=== PATIENT | female | born 1970 | race Caucasian/White ===

== ENCOUNTER 2021-09-26 13:55 | Outpatient (CLI) | payer OTHER | END 2021-09-26 13:56 | disposition home or self-care (01) | LOC: CSHLAB 13:55 → EDBD 13:55 → CSHLAB 13:56 | PROVIDERS: ATTEND Obstetrics & Gynecology | DX: Z01.812 Encounter for preprocedural laboratory examination (principal); Z20.822 Contact with and (suspected) exposure to COVID-19; D25.0 Submucous leiomyoma of uterus | CPT/HCPCS: 84703; 85027; 86850; 86900; 86901; U0003; U0005 ==

== ENCOUNTER 2021-10-01 10:48 | Day surgery (SDC) | payer OTHER ==
[2021-09-26 14:53] LABS: Hemoglobin 15.3 g/dL (12.0-15.5); Mean Corpuscular HGB CONC 34.5 g/dL (32.0-36.0); Mean Corpuscular Hemoglobin 31.4 pg (27.0-33.0); Mean Corpuscular Volume 91.2 fl (81.6-98.3); Mean Platelet Volume 11.1 fl (7.4-10.4); Platelet Count 213 10x3/uL (150-450); RBC Distribution Width 13.4 % (11.5-14.5); Red Blood Cell (RBC) Count 4.87 10x6/uL (3.90-5.03); White Blood Cell (WBC) Count 9.6 10x3/uL (3.5-10.5)
[2021-09-26 15:03] LABS: BHCG - Serum Negative (NEGATIVE); Pregs Control Background? CLEAR/WHITE (CLR/WHITE); Pregs Control Bar Appear? YES (CONTROL BAR)
[2021-09-27 12:37] LABS: SARS-CoV-2 PCR by NAA Not Detected (NotDetected)
[2021-09-29 12:05] VITALS: BMI 32.4
[~2021-10-01 10:48] MED LIST: Bupivacaine PF 0.5% 30 ML VIAL ONE; EPINEPHrine 1 MG/ML AMP ONE
[2021-10-01] MEDS ORDERED: Gabapentin 300 MG CAP ONE (11:08)
[2021-10-01] MEDS ORDERED: CeleCOXIB 100 MG CAP ONE (11:08)
[2021-10-01] MEDS ORDERED: Famotidine/PF 20 mg/2ml Vial ONE (11:09)
[2021-10-01] MEDS ORDERED: Lidocaine 1% MPF 2 ML VIAL ONE (11:09)
[2021-10-01] MEDS ORDERED: Fentanyl 250 MCG/5 ML VIAL ONE (12:24)
[2021-10-01] MEDS ORDERED: PROPOFOL 20 ML ONE (12:24)
[2021-10-01] MEDS ORDERED: Lidocaine 1% PF 5 ML VIAL ONE (12:25)
[2021-10-01] MEDS ORDERED: Rocuronium Bromide 10 MG/ML (10ML VIAL) ONE (12:25)
[2021-10-01] MEDS ORDERED: Midazolam HCl 2 mg/2 ml Vial ONE (12:25)
[2021-10-01] MEDS ORDERED: Ondansetron PF 4 MG/2 ML Vial ONE (12:25)
[2021-10-01] MEDS ORDERED: Dexamethasone 20 MG/5 ML VIAL ONE (12:25)
[2021-10-01] MEDS ORDERED: Glycopyrrolate 0.2 MG/ML 5 ML SYRINGE ONE (12:25)
[2021-10-01] MEDS ORDERED: Ketorolac Tromethamine 30 MG/ML VIAL ONE (12:25)
[2021-10-01] MEDS ORDERED: ceFAZolin 2 GM/Dextrose 50 ML IVPB ONE (13:03)
[2021-10-01] MEDS ORDERED: Meperidine HCl/PF 25 MG/ML VIAL ONE (14:50)
[2021-10-01] MEDS ORDERED: HYDROcodone/Acetaminophen 5/325 mg Tablet ONE (16:46)
== END 2021-10-01 17:30 | disposition home or self-care (01) ==
LOC: EDBD → CSHSDC 10:48
PROVIDERS: ATTEND Obstetrics & Gynecology
PROC: 0UT24ZZ Resection of Bilateral Ovaries, Percutaneous Endoscopic Approach (ICD-10-PCS; principal; 2021-10-01)
PROC: 0UT94ZZ Resection of Uterus, Percutaneous Endoscopic Approach (ICD-10-PCS; principal; 2021-10-01)
PROC: 8E0W8CZ Robotic Assisted Procedure of Trunk Region, Via Natural or Artificial Opening Endoscopic (ICD-10-PCS; principal; 2021-10-01)
PROC: 0UT74ZZ Resection of Bilateral Fallopian Tubes, Percutaneous Endoscopic Approach (ICD-10-PCS; principal; 2021-10-01)
DX: D25.9 Leiomyoma of uterus, unspecified (principal); N80.0 Endometriosis of uterus; N83.11 Corpus luteum cyst of right ovary; N83.12 Corpus luteum cyst of left ovary; N88.2 Stricture and stenosis of cervix uteri; K66.0 Peritoneal adhesions (postprocedural) (postinfection); E11.9 Type 2 diabetes mellitus without complications; Z79.84 Long term (current) use of oral hypoglycemic drugs; Z79.899 Other long term (current) drug therapy; Z20.822 Contact with and (suspected) exposure to COVID-19
CPT/HCPCS: 36415; 36416; 84703; 85027; 86850; 86900; 86901; 88307; C1776; J0171; J0690; J1100; J1885; J2175; J2250; J2405; J2704; J3010; S0020; S0028; U0003; U0005